=== PATIENT | male | born 1955 | race Caucasian/White ===

== ENCOUNTER 2016-09-03 13:32 | Emergency (ER) | payer MEDICAID ==
[2016-09-03 13:55] VITALS: BP 141/103
--- NOTE | 2016-09-03 14:31 | EDM.PDOC ---
[id number] BLEED Time Seen by Provider: 09/03/16 14:05 Source of Information: Reports: Patient History Limitations: Reports: No Limitations - History of Present Illness INITIAL COMMENTS - FREE TEXT/NARRATIVE: 61-year-old male on [place] toe for a right DVT developed right-sided epistaxis this morning after waking and it's been recurring all morning. Onset: Sudden (This morning) Severity: Mild Associated Symptoms: Reports: No Other Symptoms - Related Data Allergies Allergy/AdvReac Type Severity Reaction Status Date / Time codeine Allergy Itching Verified 09/03/16 13:55 Home Meds: Home Meds Aspirin [Ecotrin] 81 mg PO DAILY 09/03/16 [History] Hydrochlorothiazide 25 mg PO DAILY 09/03/16 [History] Pravastatin Sodium [Pravastatin (Pravachol)] 20 mg PO BEDTIME 09/03/16 [History] Rivaroxaban [Xarelto] 20 mg PO BID 09/03/16 [History] Past Medical History HEENT History: Reports: Cataract Cardiovascular History: Reports: Blood Clots/VTE/DVT, High Cholesterol, Hypertension Respiratory History: Reports: Asthma Genitourinary History: Reports: BPH, Prostate Disorder Other Genitourinary History: psa high Musculoskeletal History: Reports: Arthritis, Fracture Dermatologic History: Reports: Other (See Below) - Past Surgical History HEENT Surgical History: Reports: Other (See Below) Other HEENT Surgeries/Procedures: sinus surgery polyps GI Surgical History: Reports: Hernia Repair/Other Social & Family History - Tobacco Use Smoking Status *Q: Former Smoker Used Tobacco, but Quit: Yes Month Tobacco Last Used: 2 years ago - Caffeine Use Caffeine Use: Reports: Coffee - Recreational Drug Use Recreational Drug Type: Reports: Marijuana/Hashish ED ROS ENT - Review of Systems Review Of Systems: See Below Constitutional: Denies: Fever, Chills Respiratory: Denies: Shortness of Breath, Cough GI/Abdominal: Denies: Nausea, Vomiting Skin: Reports: No Symptoms Neurological: Reports: No Symptoms ED EXAM, ENT - Physical Exam Exam: See Below (Allergies no watching cartoons) Exam Limited By: No Limitations General Appearance: Alert, No Apparent Distress Nose: Dried Blood Head: Atraumatic Respiratory/Chest: No Respiratory Distress Skin: Warm, Dry Course - Vital Signs Last Recorded V/S: Last Vital Signs Temp 98.8 F 09/03/16 13:50 Pulse 94 09/03/16 13:50 Resp 16 09/03/16 13:50 BP 141/103 H 09/03/16 13:50 Pulse Ox 97 09/03/16 13:50 - Re-Assessments/Exams Free Text/Narrative Re-Assessment/Exam: 09/03/16 14:50 We had the patient blow clots out of the nasal airways and then used direct pressure for an additional 15 minutes. Bleeding seemed to stop. Patient wanted to avoid packing at this time and he was supplied with an external foam nasal pincher. He will return if bleeding recurs and is unstoppable. Departure - Departure Time of Disposition: 14:51 Disposition: Home, Self-Care 01 Condition: Good Clinical Impression: Epistaxis - Discharge Information Instructions: Nosebleed, [id number] Referrals: PCP,None [Primary Care Provider] - Forms: ED Department Discharge Care Plan Goals: If bleeding recurs try direct pressure, and return if bleeding uncontrolled.
== END 2016-09-03 14:54 | disposition home or self-care (01) ==
LOC: JP.ED 13:32
DX: R04.0 Epistaxis (principal); J45.909 Unspecified asthma, uncomplicated; E78.00 Pure hypercholesterolemia, unspecified; I10 Essential (primary) hypertension; Z88.5 Allergy status to narcotic agent; Z86.718 Personal history of other venous thrombosis and embolism; Z79.899 Other long term (current) drug therapy; Z87.890 Personal history of sex reassignment
CPT/HCPCS: 99282; 99283